=== PATIENT | female | born 1985 | race Caucasian/White ===

== ENCOUNTER 2021-10-19 02:42 | Observation (INO) | payer BC ==
[~2021-10-19] VITALS: Ht 162.6 cm; Wt 94.3 kg
[2021-10-19] MEDS ORDERED: ONDANSETRON HCL INJ 2MG/ML 2ML 2 MG/ML VIAL IV STA (02:50)
[2021-10-19] MEDS ORDERED: Morphine 4mg Syringe 4 MG/ML INJ IV ONE (03:00)
[2021-10-19] MEDS ORDERED: SODIUM CHLORIDE 0.9% 1000ML 1,000 ML IV ONE (03:00)
[2021-10-19] MEDS ORDERED: SODIUM CHLORIDE 0.9% 1000ML 1,000 ML ONE (03:04)
[2021-10-19 03:08] LABS: BASOPHILS % 0.2 % (0.0-1.0); EOSINOPHILS # (AUTO) 0.1 (0.0-0.4); EOSINOPHILS % 0.9 % (0.0-6.0); HEMATOCRIT 39.7 % (34.2-44.1); LYMPHOCYTES # (AUTO) 1.3 (1.0-3.2); LYMPHOCYTES % 13.6 % (18.0-39.1); MEAN CORPUSCULAR HEMOGLOBIN 28.3 pg (28-32); MEAN CORPUSCULAR HGB CONC 32.7 g/dL (31-35); MEAN CORPUSCULAR VOLUME 86.3 fL (81-99); MONOCYTES # (AUTO) 0.5 (0.2-0.8); MONOCYTES % 5.1 % (4.4-11.3); NEUTROPHILS # (AUTO) 7.8 (2.1-6.9); NEUTROPHILS % 79.5 % (38.7-80.0); PLATELET COUNT 192 x10e3/uL (140-360); RED CELL DISTRIBUTION WIDTH 12.1 % (11.7-14.4)
[2021-10-19 03:19] LABS: ALBUMIN 3.9 g/dL (3.5-5.0); ALBUMIN/GLOBULIN RATIO 1.2 (0.8-2.0); CALCIUM 8.7 mg/dL (8.4-10.2); CREATININE, SERUM 0.81 mg/dL (0.57-1.11)
[2021-10-19 03:29] LABS: AMYLASE 99 U/L (25-125); LIPASE 72 U/L (8-78)
[2021-10-19] MEDS ORDERED: IOPAMIDOL 370 MG/ML 200 ML INFUS..BTL INJ ONE (04:20)
[2021-10-19] MEDS ORDERED: SODIUM CHLORIDE 0.9% 50ML 50 ML ONE (04:20)
[2021-10-19 04:55] LABS: CLARITY,URINE CLEAR (CLEAR); COLOR,URINE YELLOW (YELLOW); KETONES,URINE NEGATIVE (NEGATIVE); LEUKOCYTE ESTERASE ,URINE NEGATIVE (NEGATIVE); NITRITE,URINE NEGATIVE (NEGATIVE); PROTEIN,URINE DIPSTICK NEGATIVE (NEGATIVE); URINE UROBILINOGEN 0.2 mg/dL (0.2 - 1)
[2021-10-19 04:59] LABS: BACTERIA,URINE FEW /HPF; EPITHELIAL CELLS,URINE MODERATE /LPF; RBC,URINE 0-5 /HPF (0-5); WBC,URINE (MAN) 0-5 /HPF (0-5)
[2021-10-19] MEDS ORDERED: Morphine 4mg Syringe 4 MG/ML INJ IV PRN (05:00)
[2021-10-19] MEDS ORDERED: ONDANSETRON HCL INJ 2MG/ML 2ML 2 MG/ML VIAL IV PRN (05:00)
[2021-10-19] MEDS: PIPERACILLIN/TAZOBACTAM 3.375 GM in SODIUM CHLORIDE 0.9% 50ML 50 ML IV SCH ×3 (06:00→12:02)
[2021-10-19 08:08] VITALS: BP 114/67
[2021-10-19 08:09] VITALS: BP 114/67
[2021-10-19 08:12] VITALS: BP 114/67
[2021-10-19 11:40] VITALS: BP 112/69
[2021-10-19] MEDS ORDERED: ONDANSETRON ODT4 MG PO (13:12)
[2021-10-19] MEDS ORDERED: CIPRO500 MG PO (13:36)
[2021-10-19] MEDS ORDERED: ZOFRAN4 MG PO (14:27)
== END 2021-10-19 14:41 | disposition home or self-care (01) ==
LOC: ER 02:46 → ERHOLD 04:59 → MED/SURG 07:52
PROVIDERS: ADMIT Internal Medicine; ATTEND Internal Medicine
DX: K52.9 Noninfective gastroenteritis and colitis, unspecified (principal); Z20.822 Contact with and (suspected) exposure to COVID-19; E03.9 Hypothyroidism, unspecified; D25.9 Leiomyoma of uterus, unspecified; R11.10 Vomiting, unspecified
CPT/HCPCS: 36415; 74177; 80053; 81001; 82150; 83690; 84702; 85025; 99284; C9113; G0378; J2270; J2405; J2543; J7030; Q9967; U0002

== ENCOUNTER 2022-03-11 12:50 | Emergency (ER) | payer BC, OTHER ==
[~2022-03-11] VITALS: Ht 162.6 cm; Wt 94.3 kg
[~2022-03-11 12:50] MED LIST: CIPRO500 MG PO; ONDANSETRON ODT4 MG PO; ZOFRAN4 MG PO
[2022-03-11] MEDS ORDERED: PHENAZOPYRIDINE HCL 100 MG TAB PO ONE (13:15)
[2022-03-11 13:50] LABS: CLARITY,URINE SL CLOUDY (CLEAR); COLOR,URINE RED (YELLOW); KETONES,URINE NEGATIVE (NEGATIVE); LEUKOCYTE ESTERASE ,URINE SMALL (NEGATIVE); NITRITE,URINE NEGATIVE (NEGATIVE); PROTEIN,URINE DIPSTICK 2+ (NEGATIVE); URINE UROBILINOGEN 0.2 mg/dL (0.2 - 1)
[2022-03-11 13:59] LABS: BACTERIA,URINE RARE /HPF; EPITHELIAL CELLS,URINE RARE /LPF; RBC,URINE >50 /HPF (0-5)
[2022-03-11] MEDS ORDERED: PYRIDIUM200 MG PO (14:12)
[2022-03-11] MEDS ORDERED: CEPHALEXIN500 MG PO (14:12)
== END 2022-03-11 14:24 | disposition home or self-care (01) ==
LOC: ER 13:44
DX: N30.91 Cystitis, unspecified with hematuria (principal); N80.9 Endometriosis, unspecified
CPT/HCPCS: 81001; 81025; 99283